=== PATIENT | male | born 1955 | race Caucasian/White ===

== ENCOUNTER 2017-04-18 06:25 | Observation (INO) | payer MEDICARE ==
[~2017-04-18] VITALS: Ht 170.2 cm; Wt 92.0 kg
[~2017-04-18 06:25] MED LIST: AMOX500C PO; CALC667C PO; HYDR-3799 PO; KLOR8TAB PO; METO-309 PO; TAMS5CAP PO; VENTAER INH
--- NOTE | 2017-04-18 06:47 | HHI.HP ---
History of Present Illness Chief Complaint: ESRD, need for HD access History of Present Illness 61 yo male with ESRD and need for HD access, currently getting HD via catheter. On 01/10 had L UE first stage of a planned 2 stage procedure. Ready for 2nd stage. Past/Family/Social History Past Medical History ESRD HTN Past Surgical History knee tonsillectomy L UE BB AVF (1st stage) Social History nonsmoker Family History NC Home Medications Active Scripts Albuterol 18 GM Inh (Ventolin Hfa 18 GM Inh) 90 Mcg/Act Aer, 1 PUFF INH Q4H Y for SHORTNESS OF BREATH, #1 INHALER 0 Refills Prov:Jatinder Blackmon MD 01/13/17 Amoxicillin (Amoxicillin) 500 Mg Cap, 500 MG PO DAILY for Infection, #5 CAP 0 Refills Prov:Jatinder Blackmon MD 01/13/17 Calcium Acetate (Phosphate Bin (Calcium Acetate) 667 Mg Cap, 2001 MG PO TID for Electrolyte Replacement, #90 CAP 0 Refills Prov:Jatinder Blackmon MD 01/13/17 Potassium Chloride ER (Klor-Con 8) 8 Meq Tab, 8 MEQ PO BID for Electrolyte Replacement, #60 TAB Prov:Jatinder Blackmon MD 01/13/17 Metoprolol Tartrate (Lopressor) 50 Mg Tab, 50 MG PO Q12HR for Blood Pressure Management, #60 TAB 0 Refills Prov:Jatinder Blackmon MD 01/13/17 Hydralazine HCl (Hydralazine HCl) 25 Mg Tablet, 50 MG PO Q8HR for Blood Pressure Management, #90 TAB 0 Refills Prov:Jatinder Blackmon MD 01/13/17 Tamsulosin (Flomax) 0.4 Mg Cap, 0.4 MG PO DAILY for urinary retention, #30 CAP 0 Refills Prov:Jatinder Blackmon MD 01/13/17 Coded Allergies: No Known Allergies (Verified , 12/26/16) Review of Systems Constitutional: DENIES: Fever, Chills Respiratory: DENIES: Wheezing Cardiovascular: DENIES: Chest pain Physical Exam Neuro: alert, oriented, no distress HEENT: poor dentition, anicteric sclera Neck: no JVD Heart: reg rate, no M Lungs: clear B Vascular: + L UE thrill Extremities: incision L UE intact, no erythema pending duplex reviewed - no stenosis Caprini VTE Risk Assessment Caprini VTE Risk Assessment: Mod/High Risk (score >= 2) Caprini Risk Assessment Model Point Value = 1 Point Value = 2 Point Value = 3 Point Value = 5 Age 41-60 Minor surgery BMI > 25 kg/m2 Swollen legs Varicose veins or History of unexplained or recurrent spontaneous Oral contraceptives or hormone replacement Sepsis (< 1 month) Serious lung disease, including pneumonia (< 1 month) Abnormal pulmonary function Acute myocardial infarction Congestive heart failure (< 1 month) History of inflammatory bowel disease Medical patient at bed rest Age 61-74 Arthroscopic surgery Major open surgery (> 45 min) Laparoscopic surgery (> 45 min) Malignancy Confined to bed (> 72 hours) Immobilizing plaster cast Central venous access Age >= 75 History of VTE Family history of VTE Factor V Leiden Prothrombin [id number] Lupus anticoagulant Anticardiolipin antibodies Elevated serum homocysteine Heparin-induced thrombocytopenia Other congenital or acquired thrombophilia Stroke (< 1 month) Elective arthroplasty Hip, pelvis, or leg fracture Acute spinal cord injury (< 1 month) Prophylaxis Regimen Total Risk Factor Score Risk Level Prophylaxis Regimen 0-1 Low Early ambulation 2 Moderate Order ONE of the following: *Sequential Compression Device (SCD) *Heparin 5000 units SQ BID 3-4 Higher Order ONE of the following medications: *Heparin 5000 units SQ TID *Enoxaparin/Lovenox 40 mg SQ daily (WT < 150 kg, CrCl > 30 mL/min) *Enoxaparin/Lovenox 30 mg SQ daily (WT < 150 kg, CrCl > 10-29 mL/min) *Enoxaparin/Lovenox 30 mg SQ BID (WT < 150 kg, CrCl > 30 mL/min) AND/OR *Sequential Compression Device (SCD) 5 or more Highest Order ONE of the following medications: *Heparin 5000 units SQ TID (Preferred with Epidurals) *Enoxaparin/Lovenox 40 mg SQ daily (WT < 150 kg, CrCl > 30 mL/min) *Enoxaparin/Lovenox 30 mg SQ daily (WT < 150 kg, CrCl > 10-29 mL/min) *Enoxaparin/Lovenox 30 mg SQ BID (WT < 150 kg, CrCl > 30 mL/min) AND *Sequential Compression Device (SCD) Assessment and Plan Plan L UE access revision (2nd stage brachiobasilic AVF) Questions answered; operative site marked. To OR. Discharge Planning POA for observation Anticipate d/c after HD tomorrow (POD#1) Vasiliy Reeves MD Apr 18, 2017 06:47
[2017-04-18] MEDS ORDERED: POVIDONE IODINE 5% (ANTISEPSIS KIT) 4 APPLICATIONS EACH NARE PRN (07:15)
[2017-04-18] MEDS ORDERED: CHLORHEXIDINE GLUCONATE 2 % 1 PACK (2 CLOTHS) TOPICAL PRN (07:15)
[2017-04-18] MEDS ORDERED: LACTATED RINGER'S 1000 ML IV PRN (07:15)
[2017-04-18] MEDS ORDERED: INSULIN HUMAN REGULAR 1,000 UNITS/10 ML VIAL SQ PRN (07:15)
[2017-04-18] MEDS ORDERED: SODIUM CHLORID 0.9% 500 ML IV PRN (07:15)
[2017-04-18] MEDS ORDERED: METOPROLOL TARTRATE 25 MG TAB PO PRN (07:15)
[2017-04-18] MEDS ORDERED: LORA1TAB12 PO (07:20)
[2017-04-18] MEDS ORDERED: HEPARIN-NS/PF INJ 500 ML ONE (07:52)
[2017-04-18] MEDS ORDERED: BUPIVACAINE HCL PF 0.5% 30 ML VIAL ONE (07:52)
[2017-04-18] MEDS ORDERED: PROTAMINE SULFATE 50 MG/5 ML VIAL ONE (07:52)
[2017-04-18] MEDS ORDERED: HEPARIN SODIUM - IV 10,000 UNITS/10 ML VIAL ONE (07:52)
[2017-04-18] MEDS ORDERED: THROMBIN (TOPICAL) 20,000 UNIT SPRAY KIT ONE (07:52)
[2017-04-18 08:09] LABS: BICARBONATE 25.9 MEQ/L (21.0-32.0); CALCIUM 9.2 MG/DL (8.5-10.1); CREATININE 5.05 MG/DL (0.60-1.30)
[2017-04-18] MEDS ORDERED: VANCOMYCIN HCL 1000 MG VIAL ONE (08:18)
--- NOTE | 2017-04-18 09:20 | HHI.PR ---
cc: Vasiliy Reeves MD Immediate Post Op Note Procedure Date: Apr 18, 2017 Pre Op Diagnosis: ESRD, need for HD access Post Op Diagnosis: ESRD, need for HD access Surgeon: Vasiliy Reeves Drywaller(s): Reji Mcadams Procedure: L UE access revision Findings: 7-8mm AVF Complications: none Specimen(s) removed: none Estimated blood loss: 30mL Anesthesia: LMA Drains: None Fluids: 500mL IVF Patient to: PACU Patient Condition: Good Implant/Devices: SEE IMPLANT LOG (if applicable) Date/Time of Procedure: SEE SURGICAL CARE RECORD Vasiliy Reeves MD Apr 18, 2017 09:20
[2017-04-18] MEDS ORDERED: DO NOT ADM ANY ANTICOAGULANT DRUGS PRN (09:50)
[2017-04-18] MEDS ORDERED: *morphine SULFATE 10 MG/ML PERIprocedure ONLY ONE (10:10)
[2017-04-18] MEDS ORDERED: LACTULOSE SYRUP 20 GM/30 ML CUP PO PRN (12:00)
[2017-04-18] MEDS ORDERED: SODIUM CHLORIDE 0.9% 20 ML VIAL IV ONE (12:00)
[2017-04-18] MEDS ORDERED: ONDANSETRON HCL 4 MG/2 ML VIAL IV ONE (12:00)
[2017-04-18] MEDS ORDERED: HYDROmorphone HCL 2 MG TAB PO PRN (12:00)
[2017-04-18] MEDS ORDERED: SENNOSIDES 8.6 MG TAB PO PRN (12:00)
[2017-04-18] MEDS ORDERED: DEXAMETHASONE SOD PHOS 4 MG/ML VIAL IV ONE (12:00)
[2017-04-18] MEDS ORDERED: LIDOCAINE HCL 1% PF 5 ML SYRINGE OTHER ONE (12:00)
[2017-04-18] MEDS ORDERED: PHENYLEPH/NS 1000 MCG/10 ML SYR IV ONE (12:00)
[2017-04-18] MEDS ORDERED: BISACODYL 10 MG SUPP RECTAL PRN (12:00)
[2017-04-18] MEDS ORDERED: PROPOFOL 200 MG/20 ML AMP IV ONE (12:00)
[2017-04-18] MEDS ORDERED: ALBUTEROL SULFATE 90 MCG/ACT HFA 8 GM INHALER INH PRN (12:00)
[2017-04-18] MEDS ORDERED: SODIUM CHLOR 0.9% 250 ML INJ 250 ML IV ONE (12:00)
[2017-04-18] MEDS ORDERED: LORazepam 1 MG TAB PO PRN (12:00)
[2017-04-18] MEDS ORDERED: SODIUM CHLORID 0.9% 500 ML INJ 500 ML IV ONE (12:00)
--- NOTE | 2017-04-18 15:27 | PD.CONS ---
HPI Service Nephrology Consult Requested By Dr. Denise Reason for Consult ESRD on HD Primary Care Physician No Primary Care Physician History of Present Illness Patient is a 61 yo male with past medical history HTN and ESRD with HD on Mon . On 01/10 had L UE first stage and is now s/p stage 2 revision. He has been getting dialysis at the hospital on / but now is set up to have dialysis at [facility] and his days will be /Mon. Permacath in place. His last dialysis was on Monday. (Anastasia Mcmillan) Review of Systems Respiratory: DENIES: Cough, Sputum production, Shortness of breath Cardiovascular: DENIES: Chest pain, Palpitations, Lower Extremity Edema Gastrointestinal: DENIES: Abdominal pain, Constipation, Diarrhea Psychiatric: COMPLAINS OF: Anxiety (Anastasia Mcmillan) Past Family Social History Allergies: Coded Allergies: No Known Allergies (Verified Allergy, Unknown, 04/18/17) Past Medical History HTN ESRD Past Surgical History knee tonsillectomy L UE BB AVF (1st stage) Active Ordered Medications Current Medications Medications (Trade) Dose Ordered Sig/Isauro Route Start Time Stop Time Status Last Admin Lactated Ringer's 1,000 ml @ 30 mls/hr Q24H PRN IV 04/18/17 07:15 04/21/17 07:14 04/18/17 07:15 Sodium Chloride 500 ml @ 30 mls/hr [id number] PRN IV 04/18/17 07:15 04/21/17 07:14 (Lopressor) 25 mg CIO PRN PO 04/18/17 07:15 04/21/17 07:14 (Betadine 5% Antisepsis Kit) 1 applic CIO PRN EACH NARE 04/18/17 07:15 04/21/17 07:14 04/18/17 07:30 (Chlorhexidine 2% Cloth) 3 pack CIO PRN TOPICAL 04/18/17 07:15 04/21/17 07:14 04/18/17 07:00 (NovoLIN R INJ) See Protocol Table ... CIO PRN SQ 04/18/17 07:15 04/21/17 07:14 (Aspirin Chew) 81 mg DAILY PO 04/19/17 09:00 (Pepcid) 20 mg BID PO 04/18/17 21:00 (Lipitor) 40 mg HS PO 04/18/17 21:00 (Roxicodone) 5 mg Q4H PRN PO 04/18/17 12:00 (Dilaudid) 2 mg Q4H PRN PO 04/18/17 12:00 (Heparin Inj) 5,000 units Q8H SQ 04/18/17 09:30 UNV (Sia-Colace) 1 tab BID PO 04/18/17 21:00 (Senokot) 17.2 mg Q12H PRN PO 04/18/17 12:00 (Dulcolax Supp) 10 mg DAILY PRN RECTAL 04/18/17 12:00 (Lactulose Liq) 30 ml DAILY PRN PO 04/18/17 12:00 (Proair Hfa Inh) 1 puff Q4H PRN INH 04/18/17 12:00 (Ativan) 1 mg DAILY PRN PO 04/18/17 12:00 Miscellaneous Information ALL NURSING DEPARTME... UNSCH PRN .XX 04/18/17 09:50 04/19/17 09:49 Social History Denies ETOH or tobacco use Lives alone (Anastasia Mcmillan) Physical Exam Vital Signs Vital Signs Date Time Temp Pulse Resp B/P (MAP) Pulse Ox O2 Delivery O2 Flow Rate FiO2 04/18/17 09:49 97.5 82 20 153/75 (101) 95 Nasal Cannula 2 04/18/17 07:20 98.5 103 20 167/85 (112) 97 Physical Exam GENERAL: Alert and oriented SKIN: Warm and dry. LUE incision HEAD: Normocephalic. EYES: No scleral icterus. No injection or drainage. NECK: Supple, trachea midline. No JVD or lymphadenopathy. CARDIOVASCULAR: Regular rate and rhythm without murmurs, gallops, or rubs. RESPIRATORY: Breath sounds equal bilaterally. No accessory muscle use. GASTROINTESTINAL: Abdomen soft, non-tender, nondistended. MUSCULOSKELETAL: No cyanosis, or edema. BACK: Nontender without obvious deformity. No CVA tenderness. Laboratory Laboratory Tests Test 04/18/17 07:15 Blood Urea Nitrogen 41 Creatinine 5.05 Random Glucose 173 Calcium Level 9.2 Sodium Level 138 Potassium Level 3.8 Chloride Level 100 Carbon Dioxide Level 25.9 Anion Gap 12 Estimat Glomerular Filtration Rate 12 (Anastasia Mcmillan) Result Diagram: 04/18/17 0715 Assessment and Plan Problem List: (1) End stage renal failure on dialysis ICD Codes: N18.6 - End stage renal disease; Z99.2 - Dependence on renal dialysis Plan: He has been getting dialysis at the hospital on but now is set up to have dialysis at [facility] and his days will be T//Sat. Permacath in place. His last dialysis was on Monday. Patient does not want dialysis tomorrow and is requesting to have dialysis at [facility] on . Potassium WNL If labs are stable tomorrow then possibly he will not need dialysis and can just go to [facility] in AM (2) Hypertension ICD Codes: I10 - Essential (primary) hypertension (3) AVF (arteriovenous fistula) ICD Codes: I77.0 - Arteriovenous fistula, acquired (Anastasia Mcmillan) Problem List: (1) End stage renal failure on dialysis ICD Codes: N18.6 - End stage renal disease; Z99.2 - Dependence on renal dialysis Plan: He has been getting dialysis at the [facility] on but now is set up to have dialysis at [facility] and his days will be T//Sat. Permacath in place. His last dialysis was on Monday. Patient does not want dialysis tomorrow and is requesting to have dialysis at [facility] on . Potassium WNL If labs are stable tomorrow then possibly he will not need dialysis and can just go to [facility] in AM. Patient seen and examined, agree with above. Possible HD on as out patient after D/C tomorrow. (2) Hypertension ICD Codes: I10 - Essential (primary) hypertension (3) AVF (arteriovenous fistula) ICD Codes: I77.0 - Arteriovenous fistula, acquired (Magaly Solares MD) Anastasia Mcmillan Apr 18, 2017 15:27 Magaly Solares MD Apr 18, 2017 19:08
[2017-04-18 17:03] VITALS: BP 149/78; PULSE 94; RESP 19; TEMP 97; O2SAT 99
[2017-04-18 20:32] VITALS: BP 135/67; PULSE 79; RESP 20; TEMP 98.8; O2SAT 98
[2017-04-18] MEDS: FAMOTIDINE 20 MG TAB PO SCH (20:33)
[2017-04-18] MEDS: DOCUSATE SODIUM 50 MG/SENNA 8.6 MG TAB PO SCH (20:35)
[2017-04-18] MEDS ORDERED: ATORVASTATIN 40 MG TAB PO SCH (21:00)
[2017-04-19 00:24] VITALS: BP 136/75; PULSE 74; RESP 18; TEMP 98; O2SAT 98
[2017-04-19 04:16] VITALS: PULSE 82
[2017-04-19 05:18] VITALS: BP 133/70; PULSE 82; RESP 18; TEMP 97.3; O2SAT 96
[2017-04-19 08:00] VITALS: BP 133/63; PULSE 78; RESP 18; TEMP 96.5; O2SAT 96
[2017-04-19] MEDS: DOCUSATE SODIUM 50 MG/SENNA 8.6 MG TAB PO SCH (09:00)
[2017-04-19] MEDS ORDERED: HEPARIN SODIUM - SQ 10,000 UNITS/ML VIAL SQ SCH (09:00)
[2017-04-19] MEDS ORDERED: ASPIRIN 81 MG CHEW TAB PO SCH (09:00)
--- NOTE | 2017-04-19 09:54 | PD.VS.PN ---
Subjective POD #: 1 Procedure(s): L UE access revision Subjective/Hospital Course Pt s/p L UE access revision Doing well this am Pain controlled Pt denied hand pain + thrill near AVF Pt w/ palpable R/L radial pulses Objective Vitals/I&O Date Time Temp Pulse Resp B/P (MAP) Pulse Ox O2 Delivery O2 Flow Rate FiO2 04/19/17 08:00 96.5 78 18 133/63 (86) 96 04/19/17 05:18 97.3 82 18 133/70 (91) 96 04/19/17 04:16 82 04/19/17 00:24 98.0 74 18 136/75 (95) 98 04/18/17 20:32 98.8 79 20 135/67 (89) 98 04/18/17 17:03 97.0 94 19 149/78 (101) 99 04/18/17 16:15 97.9 72 20 108/69 (82) 94 Nasal Cannula 2 04/18/17 15:00 72 20 108/69 (82) 94 Nasal Cannula 2 04/18/17 13:00 72 20 105/64 (78) 97 Nasal Cannula 2 04/18/17 12:00 74 20 123/68 (86) 95 Nasal Cannula 2 04/18/17 11:00 80 20 148/88 (108) 99 Nasal Cannula 2 04/18/17 10:45 81 20 149/85 (106) 99 Nasal Cannula 2 04/18/17 10:30 82 20 162/87 (112) 99 Nasal Cannula 2 04/18/17 10:15 81 20 152/86 (108) 98 Nasal Cannula 2 04/18/17 09:49 97.5 82 20 153/75 (101) 95 Nasal Cannula 2 04/19/17 04/19/17 04/19/17 07:00 15:00 23:00 Intake Total 480 ml Balance 480 ml Exam: GENERAL: A&Ox3, NAD,GCS15 SKIN: UE Warm and dry w/ motor intact L UE incision well approximated/intact with surgical glue/ Mild L UE swelling/ No drainage HEAD: Normocephalic. EYES: No scleral icterus. No injection or drainage. NECK: Supple, trachea midline. No JVD or lymphadenopathy. CARDIOVASCULAR: Regular rate and rhythm without murmurs, gallops, or rubs. RESPIRATORY: Breath sounds equal bilaterally. No accessory muscle use. GASTROINTESTINAL: Abdomen soft, non-tender, nondistended. MUSCULOSKELETAL: No cyanosis, or edema. + thrill palpated near L UE AVF Palpable R/L radial pulses noted Pt w/o hand pain Assessment and Plan Assessment: (1) AVF (arteriovenous fistula) (2) End stage renal failure on dialysis Plan Afebrile 61/M S/P L UE access revision (2nd stage brachiobasilic AVF) Pt doing well this am Reviewed labs Pt to HD- Out pt ([facility]) pain controlled Pt w/o hand pain + thrill and distal pulses Plan Pt clear for d/c Arranged out pt f/u Discussed and reviewed AVF revision post operative care and management w/ pt Questions answered Rachel Vazquez NP [facility] [phone] Discharge Planning Today Rachel Vazquez Apr 19, 2017 09:54
[2017-04-19] MEDS ORDERED: PERC5TAB12 PO (09:56)
[2017-04-19] MEDS: FAMOTIDINE 20 MG TAB PO SCH (10:01)
--- NOTE | 2017-04-19 10:01 | MP ---
cc: VASILIY REEVES MD DATE OF SURGERY 04/18/2017 PREOPERATIVE DIAGNOSIS End-stage renal disease, needs dialysis access. POSTOPERATIVE DIAGNOSIS End-stage renal disease, needs dialysis access. PROCEDURE Left brachial basilic arteriovenous fistula revision (superficialization). ATTENDING SURGEON Vasiliy Reeves. TUBE WASHER SURGEON Reji Mcadams. ANESTHESIA General. INDICATION Mr. Ugarte is a 61-year-old gentleman who has end-stage renal disease and is currently on dialysis. He is taken to the operating room for a second stage revision. DESCRIPTION OF PROCEDURE Informed consent was obtained from the patient. He was taken to the operating room and placed supine on the operating room table. An appropriate timeout was taken to ensure the patient's identity, operative site and planned procedure. The administration of a gram of vancomycin was initiated prior to skin incision and will be discontinued after a single preoperative dose. Everyone in the room agreed with the timeout and we proceeded. His left arm was prepped and draped and his previous incision was opened with a #10 blade and carried down to subcutaneous tissue with electrocautery. The basilic vein was identified and dissected free throughout its entirety from near to the antecubitum all the way up to the axilla. The tissue underneath was then closed with running 2-0 Polysorb thereby superficializing the fistula. The wound was irrigated and made hemostatic and the layers overlying the fistula were closed with 3-0 Polysorb interrupted sutures and 4-0 Monocryl. The sponge and needle counts were correct at the end of the case. I was present and scrubbed and performed the entire procedure. Vasiliy Reeves MD RJF/BT /7:05 AM /9:36 AM PEG
--- NOTE | 2017-04-19 10:04 | PD.VS.DC ---
Discharge Summary Admission Date: Apr 18, 2017 at 09:23 Discharge Date: Apr 19, 2017 Admission Diagnosis: (1) AVF (arteriovenous fistula) (2) End stage renal failure on dialysis Discharge Diagnosis: (1) AVF (arteriovenous fistula) ICD Codes: I77.0 - Arteriovenous fistula, acquired (2) End stage renal failure on dialysis ICD Codes: N18.6 - End stage renal disease; Z99.2 - Dependence on renal dialysis Brief History from admission 61 yo male with ESRD and need for HD access, currently getting HD via catheter. On 01/10 had L UE first stage of a planned 2 stage procedure. Ready for 2nd stage. Procedure(s): L UE access revision Significant Findings GENERAL: A&Ox3, NAD,GCS15 SKIN: UE Warm and dry w/ motor intact L UE incision well approximated/intact with surgical glue/ Mild L UE swelling/ No drainage HEAD: Normocephalic. EYES: No scleral icterus. No injection or drainage. NECK: Supple, trachea midline. No JVD or lymphadenopathy. CARDIOVASCULAR: Regular rate and rhythm without murmurs, gallops, or rubs. RESPIRATORY: Breath sounds equal bilaterally. No accessory muscle use. GASTROINTESTINAL: Abdomen soft, non-tender, nondistended. MUSCULOSKELETAL: No cyanosis, or edema. + thrill palpated near L UE AVF Palpable R/L radial pulses noted Pt w/o hand pain Laboratory Tests Test 04/18/17 07:15 Blood Urea Nitrogen 41 MG/DL (7-18) Creatinine 5.05 MG/DL (0.60-1.30) Random Glucose 173 MG/DL (74-106) Estimat Glomerular Filtration Rate 12 ML/MIN (>89) Hospital Course: 61 yo male with ESRD and need for HD access, Pt currently getting HD via catheter. On 01/10 had L UE first stage of a planned 2 stage procedure. Pt s/p L UE AVF access revision POD 1 Pt s/p L UE access revision Doing well this am Pain controlled Pt denied hand pain + thrill near AVF Pt w/ palpable R/L radial pulses AM labs reviewed Pt clear for d/c this am Arranged out pt f/u in 2W HD scheduled as out pt ([facility]) Allergies Coded Allergies Type Severity Reaction Last Updated Verified No Known Allergies Allergy Unknown 04/18/17 Yes 04/17/17 04/17/17 04/18/17 04/18/17 04/19/17 04/19/17 06:00 18:00 06:00 18:00 06:00 18:00 Intake Total 480 ml Balance 480 ml Intake Oral 480 ml # Voids 3 Laboratory Tests Test 04/18/17 07:15 04/19/17 09:25 Blood Urea Nitrogen 41 MG/DL Creatinine 5.05 MG/DL Random Glucose 173 MG/DL Calcium Level 9.2 MG/DL Sodium Level 138 MEQ/L Potassium Level 3.8 MEQ/L Chloride Level 100 MEQ/L Carbon Dioxide Level 25.9 MEQ/L Anion Gap 12 MEQ/L Estimat Glomerular Filtration Rate 12 ML/MIN Orders Procedure Category Date Status Time Basic Metabolic Panel LAB 04/18/17 Complete (Bmp) 06:42 Type And Screen BBK 04/18/17 In Process 06:42 Lactated Ringer's MED 04/18/17 In Process 1000 Ml Inj (Lr 1000 M 07:15 Sodium Chlorid 0.9% MED 04/18/17 In Process 500 Ml Inj (Ns 500 M 07:15 Metoprolol Tartrate MED 04/18/17 In Process (Lopressor) 07:15 Povidone Iod 5% MED 04/18/17 In Process Antisepsis Kit 07:15 Chlorhexidine 2% MED 04/18/17 In Process Cloth (Chlorhexidine 07:15 Insulin Human Regular MED 04/18/17 In Process Inj (Novolin R Inj 07:15 Protamine Sulfate Inj MED 04/18/17 Complete (Protamine Sulfate 07:52 Heparin Inj (Heparin MED 04/18/17 Complete Inj) 07:52 Bupivacaine Pf 0.5% MED 04/18/17 Complete Inj (Marcaine Pf 0.5 07:52 Thrombin Top [place] MED 04/18/17 Complete (Thrombin Top [place]) 07:52 Heparin-Ns/Pf Inj MED 04/18/17 Complete (Heparin-Ns/Pf Inj) 07:52 Vancomycin Inj MED 04/18/17 Complete (Vancomycin Inj) 08:18 Red Blood Cells (Rbc) BBK 04/18/17 In Process 07:15 Place In Observation ADMITTING 04/18/17 Transmitted Code Status CODE 04/18/17 Transmitted 09:20 Vital Signs (Adult) FARHEEN 04/18/17 In Process 09:20 Company Controller / FARHEEN 04/18/17 In Process Telemetry 09:20 Activity Oob Ad Ariadna FARHEEN 04/18/17 In Process 09:20 Precautions FARHEEN 04/18/17 In Process 09:20 Diet Heart Healthy DIET 04/18/17 Transmitted Breakfast Basic Metabolic Panel LAB 04/19/17 In Process (Bmp) 06:00 Consult Nephrology CONS 04/18/17 Transmitted Aspirin Chew (Aspirin MED 04/19/17 In Process Chew) 09:00 Famotidine (Pepcid) MED 04/18/17 In Process 21:00 Atorvastatin (Lipitor) MED 04/18/17 In Process 21:00 Oxycodone (Roxicodone) MED 04/18/17 In Process 12:00 Hydromorphone MED 04/18/17 In Process (Dilaudid) 12:00 Scd Bilateral/Knee FARHEEN 04/18/17 In Process High 09:20 Docusate Sodium-Senna MED 04/18/17 In Process (Sia-Colace) 21:00 Sennosides (Senokot) MED 04/18/17 In Process 12:00 Bisacodyl Supp MED 04/18/17 In Process (Dulcolax Supp) 12:00 Lactulose Liq MED 04/18/17 In Process (Lactulose Liq) 12:00 Albuterol Hfa Inh MED 04/18/17 In Process (Proair Hfa Inh) 12:00 Lorazepam (Ativan) MED 04/18/17 In Process 12:00 Fentanyl Inj MED 04/18/17 Complete (Fentanyl Inj) 09:56 Fentanyl Inj MED 04/18/17 Complete (Fentanyl Inj) 09:57 AGID BBK 04/18/17 In Process 07:15 *Morphine Inj MED 04/18/17 Complete (*Morphine Inj 10:10 (Hub Use Only)Inp Phy CONS 04/18/17 Transmitted Cons/Ref Sds Pre Op Care [facility] 04/18/17 Complete Misc Nursing MED 04/18/17 Complete Information 09:50 Heparin Inj (Heparin MED 04/19/17 In Process Inj) 09:00 Class Iv Pacu Ea 30 [facility] 04/18/17 Complete MIN General/Pacu [facility] 04/18/17 Complete Post Anesthesia Oxygen [facility] 04/18/17 Complete Pacu Med Holding [facility] 04/18/17 Complete Hourly Attending Discharge DISCHARGE 04/19/17 Transmitted Order Vital Signs Date Time Temp Pulse Resp B/P (MAP) Pulse Ox O2 Delivery O2 Flow Rate FiO2 04/19/17 08:00 96.5 78 18 133/63 (86) 96 04/19/17 05:18 97.3 82 18 133/70 (91) 96 04/19/17 04:16 82 04/19/17 00:24 98.0 74 18 136/75 (95) 98 04/18/17 20:32 98.8 79 20 135/67 (89) 98 04/18/17 17:03 97.0 94 19 149/78 (101) 99 04/18/17 16:15 97.9 72 20 108/69 (82) 94 Nasal Cannula 2 04/18/17 15:00 72 20 108/69 (82) 94 Nasal Cannula 2 04/18/17 13:00 72 20 105/64 (78) 97 Nasal Cannula 2 04/18/17 12:00 74 20 123/68 (86) 95 Nasal Cannula 2 04/18/17 11:00 80 20 148/88 (108) 99 Nasal Cannula 2 04/18/17 10:45 81 20 149/85 (106) 99 Nasal Cannula 2 04/18/17 10:30 82 20 162/87 (112) 99 Nasal Cannula 2 04/18/17 10:15 81 20 152/86 (108) 98 Nasal Cannula 2 04/18/17 09:49 97.5 82 20 153/75 (101) 95 Nasal Cannula 2 04/18/17 07:20 98.5 103 20 167/85 (112) 97 Discharge Condition: Good Discharge Disposition: Discharge Home Discharge Instructions: Resume Dialysis diet Activities as tolerated No heavy lifting Left upper extremity No B/P readings or lab draws- Left upper extremity May shower then pat dry incision site Do not apply any creams or ointments to your incision site as it may loosen the surgical glue Your were prescribed a narcotic pain medication that may cause constipation- Take with an over the counter stool softener No driving while taking your RX pain medication as it may cause dizziness Any questions or concerns: Call [facility] at [facility] [phone] Rachel Vazquez Apr 19, 2017 10:04
--- NOTE | 2017-04-19 10:44 | HHI.NPPN ---
Subjective History of Present Illness Patient is a 61 yo male with past medical history HTN and ESRD with HD on Mon . On 01/10 had L UE first stage and is now s/p stage 2 revision. He has been getting dialysis at the hospital on but now is set up to have dialysis at [facility] at [facility] and his days will be T//Mon. Permacath in place. His last dialysis was on Monday. Additional Remarks OOB plan for discharge home today (Anastasia Mcmillan) Objective Data Data Vital Signs Date Time Temp Pulse Resp B/P (MAP) Pulse Ox O2 Delivery O2 Flow Rate FiO2 04/19/17 08:00 96.5 78 18 133/63 (86) 96 04/19/17 05:18 97.3 82 18 133/70 (91) 96 04/19/17 04:16 82 04/19/17 00:24 98.0 74 18 136/75 (95) 98 04/18/17 20:32 98.8 79 20 135/67 (89) 98 04/18/17 17:03 97.0 94 19 149/78 (101) 99 04/18/17 16:15 97.9 72 20 108/69 (82) 94 Nasal Cannula 2 04/18/17 15:00 72 20 108/69 (82) 94 Nasal Cannula 2 04/18/17 13:00 72 20 105/64 (78) 97 Nasal Cannula 2 04/18/17 12:00 74 20 123/68 (86) 95 Nasal Cannula 2 04/18/17 11:00 80 20 148/88 (108) 99 Nasal Cannula 2 04/18/17 10:45 81 20 149/85 (106) 99 Nasal Cannula 2 (Anastasia Mcmillan) -: 04/18/17 0715 Physical Exam General Appearance: Well Nourished, No Acute Distress, Comfortable, Obese (Anastasia Mcmillan) Eyes Eye Exam: Pupils Equal (Anastasia Mcmillan) Throat Throat Exam: Oral Mucosa [place] & Moist (Anastasia Mcmillan) Pulmonary Resp Exam: Clear Bilaterally, Breath Sounds Equal, No Distress (Anastasia Mcmillan) Cardiology CV Exam: Regular, Normal Sinus Rhythm, Good Perfusion (Anastasia Mcmillan) Gastrointestinal/Abdomen GI Exam: Soft, Non-Tender, Bowel Sounds Present (Anastasia Mcmillan) Genitourinary Exam: Flank Non-Tender (Anastasia Mcmillan) Assessment/Plan Problem List: (1) End stage renal failure on dialysis ICD Codes: N18.6 - End stage renal disease; Z99.2 - Dependence on renal dialysis Plan: He has been getting dialysis at the [facility] on but now is set up to have dialysis at [facility] at [facility] and his days will be T//Sat. Permacath in place. His last dialysis was on Monday. Patient does not want dialysis tomorrow and is requesting to have dialysis at [facility] on . Potassium WNL yesteday If labs are stable tomorrow then possibly he will not need dialysis and can just go to [facility] pending Plan for discharge home today and will have dialysis on at [facility] (2) Hypertension ICD Codes: I10 - Essential (primary) hypertension (3) AVF (arteriovenous fistula) ICD Codes: I77.0 - Arteriovenous fistula, acquired (Anastasia Mcmillan) Problem List: (1) End stage renal failure on dialysis ICD Codes: N18.6 - End stage renal disease; Z99.2 - Dependence on renal dialysis Plan: He has been getting dialysis at the [facility] on but now is set up to have dialysis at [facility] and his days will be T//Sat. Permacath in place. His last dialysis was on Monday. Patient does not want dialysis tomorrow and is requesting to have dialysis at [facility] on . Potassium WNL yesteday If labs are stable tomorrow then possibly he will not need dialysis and can just go to [facility] pending Plan for discharge home today and will have dialysis on at [facility]. Patient is for D/C, HD tomorrow. I will follow him as Outpatient. (2) Hypertension ICD Codes: I10 - Essential (primary) hypertension (3) AVF (arteriovenous fistula) ICD Codes: I77.0 - Arteriovenous fistula, acquired (Magaly Solares MD) Anastasia Mcmillan Apr 19, 2017 10:44 Magaly Solares MD Apr 19, 2017 17:40
[2017-04-19 10:49] LABS: BICARBONATE 23.5 MEQ/L (21.0-32.0); CALCIUM 9.1 MG/DL (8.5-10.1); CREATININE 5.58 MG/DL (0.60-1.30)
== END 2017-04-19 11:21 | disposition home or self-care (01) ==
LOC: HSDC 06:25 → HSDI 09:23 → N07B 16:39
PROVIDERS: ADMIT Surgery; ATTEND Surgery
DX: I12.0 Hypertensive chronic kidney disease with stage 5 chronic kidney disease or end stage renal disease (principal); N18.6 End stage renal disease; I77.0 Arteriovenous fistula, acquired; Z99.2 Dependence on renal dialysis
CPT/HCPCS: 01844; 36832; 80048; 86077; 86850; 86870; 86900; 86901; 86902; 86920; 86922; 90935; 96374; 96375; G0378; J1100; J1644; J2270; J2370; J2405; J3010; J3370; J7040; J7050; J7120; J2720